=== PATIENT | male | born 1965 | race Caucasian/White ===

== ENCOUNTER 2022-05-15 09:36 | Emergency (ER) | payer BC ==
[2022-05-15] MEDS ORDERED: CEPHALEXIN500 M1 PO (11:43)
[2022-05-15] MEDS ORDERED: NORCO 325 MG-51 TA1 PO (11:43)
[2022-05-15 11:49] VITALS: BP 168/117
== END 2022-05-15 11:49 | disposition home or self-care (01) ==
LOC: ED 09:36
DX: R05.9 Cough, unspecified (principal)
CPT/HCPCS: 90715; J0690; J1885

== ENCOUNTER 2024-02-16 23:20 | Emergency (ER) | payer BC ==
[~2024-02-16 23:20] MED LIST: CEPHALEXIN500 M1 PO; Cephalexin 250 MG CAP PO ONE; Cetirizine 10 MG TAB PO ONE; NORCO 325 MG-51 TA1 PO
[2024-04-09 11:43] LABS: BASO # 0.03 K/mm3 (0.02-0.10); EOS # 0.88 K/mm3 (0.04-0.40); EOS % 11.8 % (0.0-4.0); HEMATOCRIT 37.8 % (42.0-52.0); HEMOGLOBIN 13.4 g/dL (13.5-18.0); LYMPH# 1.93 K/mm3 (1.50-4.00); MEAN CELL VOLUME 92 fl (78-100); MEAN CORPUSCULAR HEMOGLOBIN 33 pg (27-31); MEAN CORPUSCULAR HGB CONC 35 g/dL (33-37); MEAN PLATELET VOLUME 8.6 fl (7.4-10.4); MONO # 0.79 K/mm3 (0.20-0.80); NEU # 3.76 K/mm3 (1.40-6.50); PLATELET COUNT 189 K/mm3 (130-400); RED BLOOD COUNT 4.11 M/mm3 (4.20-5.60); RED CELL DISTRIBUTION WIDTH 11.5 % (11.5-14.5); WHITE BLOOD COUNT 7.4 K/mm3 (4.8-10.8)
== END 2024-02-17 00:45 | disposition home or self-care (01) ==
LOC: ED 23:20
PROVIDERS: Family Medicine
DX: L03.116 Cellulitis of left lower limb (principal); L03.115 Cellulitis of right lower limb

== ENCOUNTER → 2024-05-06 | Outpatient (CLI) | payer BC ==
[~2024-05-06] MED LIST changes: -Cephalexin 250 MG CAP PO ONE; -Cetirizine 10 MG TAB PO ONE
[2024-05-06 10:00] LABS: BASO # 0.04 K/mm3 (0.02-0.10); EOS % 4.5 % (0.0-4.0); HEMATOCRIT 45.8 % (42.0-52.0); HEMOGLOBIN 15.9 g/dL (13.5-18.0); MEAN CELL VOLUME 94 fl (78-100); MEAN CORPUSCULAR HEMOGLOBIN 33 pg (27-31); MEAN CORPUSCULAR HGB CONC 35 g/dL (33-37); MONO # 0.94 K/mm3 (0.20-0.80); PLATELET COUNT 222 K/mm3 (130-400); RED BLOOD COUNT 4.86 M/mm3 (4.20-5.60); RED CELL DISTRIBUTION WIDTH 11.7 % (11.5-14.5); WHITE BLOOD COUNT 6.6 K/mm3 (4.8-10.8)
[2024-05-06 10:02] LABS: ALBUMIN 4.6 g/dL (3.5-5.0)
[2024-05-06 10:04] LABS: CALCIUM 9.6 mg/dL (8.3-10.5)
[2024-05-06 10:05] LABS: TOTAL PROTEIN 8.3 g/dL (6.4-8.3)
[2024-05-06 10:07] LABS: TOTAL BILIRUBIN 1.1 mg/dL (0.2-1.2)
== END ==
LOC: LAB 09:42
PROVIDERS: Nurse Practitioner Family
DX: L53.9 Erythematous condition, unspecified (principal)